=== PATIENT | male | born 1985 | race Caucasian/White ===

== ENCOUNTER 2020-03-10 05:00 | Day surgery (SDC) | payer OTHER ==
[2020-03-05 16:40] VITALS: BMI 25.5
--- OUTSIDE RECORDS SUMMARY | 2020-03-10 05:05 | XMS ---
:1985 Author Organization [facility] Care Team Providers Name Role Phone ED STAFF PHYSICIAN, STAFF Unavailable Unavailable DiGiorno, Christopher Unavailable 0004 DiGiorno, Christopher Unavailable 0004 DiGiorno, Christopher Unavailable 0004 ED STAFF PHYSICIAN Unavailable Unavailable Re-disclosure Warning The records that you are about to access may contain information from federally- assisted alcohol or drug abuse programs. If such information is present, then the following federally mandated warning applies: This information has been disclosed to you from records protected by federal confidentiality rules (42 CFR part 2). The federal rules prohibit you from making any further disclosure of this information unless further disclosure is expressly permitted by the written consent of the person to whom it pertains or as otherwise permitted by 42 CFR part 2. A general authorization for the release of medical or other information is NOT sufficient for this purpose. The Federal rules restrict any use of the information to criminally investigate or prosecute any alcohol or drug abuse patient.The records that you are about to access may contain highly sensitive health information, the redisclosure of which is protected by Article 27-F of the [facility] Public Health law. If you continue you may haveaccess to information: Regarding HIV / AIDS; Provided by facilities licensed or operated by the [facility] Office of Mental Health; or Provided by the [facility] Office for People With Developmental Disabilities. If such information is present, then the following [facility] mandated warning applies: This information has been disclosed to you from confidential records which are protected by state law. State law prohibits you from making any further disclosure of this information without the specific written consent of the person to whom it pertains, or as otherwise permitted by law. Any unauthorized further disclosure in violation of state law may result in a fine or shelter sentence or both. A general authorization for the release of medical or other information is NOT sufficient authorization for further disclosure. Allergies and Adverse Reactions Type Description Substance Reaction Status Data Source(s ) No Known No Known Allergies No Known eCW3 ( [place] [facility]) No Known No Known Allergies No Known eCW3 ( [place] [facility]) Encounters Encounter Providers Location Date Indications Data Source(s ) Attender: Edin 03/04/2020 MED GEN ([facility] 12:00:00 AM Medical, ) EDT Office Emergency Attender: ED STAFF H-ER 12/09/2019 08:37:00 [facility] PHYSICIANAttender: STAFF ED PM EDT - 12/10/2019 [facility] STAFF PHYSICIANAdmitter: ED 12:30:00 AM EDT STAFF PHYSICIAN Patient discharged. 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 [facility] 12/14/2018 12:00:00 AM eCW3 ([facility] A28 EDT - 12/14/2018 12:00:00 Health Care) AM EDT Medications Medication Brand Start Product Dose Route Administrative Pharmacy St atus Indications Reaction Description Data Name Date Form Instructions Instructions Source(s) complet No Known MEDGEN (St 2020 ed Medications [facility] 12:00: Medical, 00 AM ) EDT Fluticasone Flutic .0 active Flutica sone eCW3 Propionate asone 2019 {spra Propionate ( [facility] 50 MCG/ACT Propio 12:00: y_in_ 50 MCG/AC T [place] 00 AM each_ Health 50 EDT nostr Care) MCG/AC il} T Loratadine Lorata .0 active Loratadi ne eCW3 10 MG Oral dine 2019 {tabl 10 MG (Todd Tablet 10 MG 12:00: et} [place] 00 AM Health EDT Care) Naproxen Naprox 11/27/ active Naproxen 5 00 eCW3 500 MG Oral en 500 2020 MG ([place] [facility] Tablet MG 12:00: [place] 00 AM Health EDT Care) Famotidine Famoti .0 active Famotidi ne eCW3 40 MG Oral dine 2019 {tabl 40 MG (Todd Tablet 40 MG 12:00: et_at [place] 00 AM _bedt Health EDT romaine} Care) Cepacol Cepaco .0 active Cepacol Sor e eCW3 Sore Throat l Sore 2019 {loze Throat (Hu dson 10-2.1 MG Throat 12:00: nge_a 10-2.1 MG [place] 10-2.1 00 AM s_nee Health MG EDT ded} Care) Famotidine Famoti .0 active Famotidi ne eCW3 40 MG Oral dine 2019 {tabl 40 MG (Todd Tablet 40 MG 12:00: et_at [place] 00 AM _bedt Health EDT romaine} Care) Cepacol Cepaco .0 suspend Cepacol So re eCW3 Sore Throat l Sore 2019 {loze ed Throat (Hu dson 10-2.1 MG Throat 12:00: nge_a 10-2.1 MG [place] 10-2.1 00 AM s_nee Health MG EDT ded} Care) Amoxicillin Amoxic .0 active Amoxici llin- eCW3 875 MG / illin- 2020 {tabl Pot (Todd Clavulanate Pot 12:00: et} Clavulanate [place] 125 MG Oral Clavul 00 AM 875-125 MG Health Tablet anate EDT Care) Amoxicillin 875-12 -Pot 5 MG Clavulanate 875-125 MG Amoxicillin Amoxic .0 suspend Amoxic illin- eCW3 875 MG / illin- 2019 {tabl ed Pot (Todd Clavulanate Pot 12:00: et} Clavulanate [place] 125 MG Oral Clavul 00 AM 875-125 MG Health Tablet anate EDT Care) Amoxicillin 875-12 -Pot 5 MG Clavulanate 875-125 MG Acetaminoph Tyleno .0 active Tylenol 325 eCW3 en 325 MG l 325 2019 {tabl MG (Todd Oral Tablet MG 12:00: et_as [place] [Tylenol] 00 AM _need Health Tylenol 325 EDT ed} Care) MG pantoprazol Pantop .0 active Pantopr azole eCW3 e 40 MG razole 2019 {tabl Sodium 40 MG ( Todd Delayed Sodium 12:00: et} [place] Release 40 MG 00 AM Health Oral Tablet EDT Care) Pantoprazol e Sodium 40 MG Acetaminoph Tyleno .0 active Tylenol 325 eCW3 en 325 MG l 325 2019 {tabl MG (Todd Oral Tablet MG 12:00: et_as [place] [Tylenol] 00 AM _need Health Tylenol 325 EDT ed} Care) MG pantoprazol Pantop .0 suspend Pantop razole eCW3 e 40 MG razole 2019 {tabl ed Sodium 40 MG ( [place] Delayed Sodium 12:00: et} [place] Release 40 MG 00 AM Health Oral Tablet EDT Care) Pantoprazol e Sodium 40 MG Diphenhydra Diphen .0 suspend Diphen hydrAM eCW3 mine hydrAM 2019 {caps ed INE HCl 50 ([place] Hydrochlori INE 12:00: ule_a MG [place] de 50 MG HCl 50 00 AM t_bed Health Oral MG EDT time_ Care) Capsule as_ne DiphenhydrA eded} MINE HCl 50 MG Azithromyci Azithr 10/10/ suspend Azithr omycin eCW3 n 250 MG omycin 2020 ed 250 MG (Todd Oral Tablet 250 MG 12:00: R[place] r 00 AM Health EDT Care) Acetaminoph Tyleno 2.0 active Tylenol 325 eCW3 en 325 MG l 325 2019 {tabl MG (Todd Oral Tablet MG 12:00: et_as [place] [Tylenol] 00 AM _need Health Tylenol 325 EDT ed} Care) MG Daily Daily 10/10/ suspend Daily eCW3 Multivitami Multiv 2020 ed Multivitami n (Todd n - itamin 12:00: - [place] - 00 AM Health EDT Care) Daily Daily 10/10/ suspend Daily eCW3 Multivitami Multiv 2020 ed Multivitami n (Todd n - itamin 12:00: - [place] - 00 AM Health EDT Care) Diphenhydra Diphen .0 suspend Diphen hydrAM eCW3 mine hydrAM 2019 {caps ed INE HCl 50 ([place] Hydrochlori INE 12:00: ule_a MG [place] de 50 MG HCl 50 00 AM t_bed Health Oral MG EDT time_ Care) Capsule as_ne DiphenhydrA eded} MINE HCl 50 MG Acetaminoph Tyleno 2.0 suspend Tyleno l 325 eCW3 en 325 MG l 325 2019 {tabl ed MG (Todd Oral Tablet MG 12:00: et_as [place] [Tylenol] 00 AM _need Health Tylenol 325 EDT ed} Care) MG Azithromyci Azithr 10/10/ suspend Azithr omycin eCW3 n 250 MG omycin 2020 ed 250 MG (Todd Oral Tablet 250 MG 12:00: R[place] 00 AM Health EDT Care) pantoprazol Pantop 1.0 suspend Pantop razole eCW3 e 40 MG razole 2019 {tabl ed Sodium 40 MG ( Todd Delayed Sodium 12:00: et} [place] Release 40 MG 00 AM Health Oral Tablet EDT Care) Pantoprazol e Sodium 40 MG pantoprazol Pantop 1.0 suspend Pantop razole eCW3 e 40 MG razole 2019 {tabl ed Sodium 40 MG ( Todd Delayed Sodium 12:00: et} [place] Release 40 MG 00 AM Health Oral Tablet EDT Care) Pantoprazol e Sodium 40 MG Diclofenac Diclof .0 active Diclofen ac eCW3 Sodium 50 enac 2020 {tabl Sodium 50 MG ( Todd MG Delayed Sodium 12:00: et} [place] Release 50 MG 00 AM Health Oral Tablet EDT Care) Diclofenac Diclof .0 active Diclofen ac eCW3 Sodium 50 enac 2020 {tabl Sodium 50 MG ( Todd MG Delayed Sodium 12:00: et} [place] Release 50 MG 00 AM Health Oral Tablet EDT Care) Azithromyci Azithr 07/17/ suspend Azithr omycin eCW3 n 250 MG omycin 2020 ed 250 MG (Todd Oral Tablet 250 MG 12:00: [place] 00 AM Health EST Care) Fluticasone Flutic .0 suspend Flutic asone eCW3 Propionate asone 2019 {spra ed Propionate ( Todd 50 MCG/ACT Propio 12:00: y_in_ 50 MCG/AC T [place] ray[place] 00 AM each_ Health 50 EST nostr Care) MCG/AC il} T Azithromyci Azithr 07/17/ suspend Azithr omycin eCW3 n 250 MG omycin 2019 ed 250 MG (Todd Oral Tablet 250 MG 12:00: [place] 00 AM Health EST Care) Omeprazole Omepra 07/17/ suspend Omepraz ole eCW3 40 MG zole 2019 ed 40 MG (Todd Delayed 40 MG 12:00: [place] Release 00 AM Health Oral EST Care) Capsule Omeprazole Omepra 07/17/ suspend Omepraz ole eCW3 40 MG zole 2020 ed 40 MG (Todd Delayed 40 MG 12:00: [place] Release 00 AM Health Oral EST Care) Capsule Fluticasone Flutic .0 suspend Flutic asone eCW3 Propionate asone 2020 {spra ed Propionate ( Todd 50 MCG/ACT Propio 12:00: y_in_ 50 MCG/AC T [place] 00 AM each_ Health 50 EST nostr Care) MCG/AC il} T Azithromyci Azithr 04/17/ suspend Azithr omycin eCW3 n 250 MG omycin 2018 ed 250 MG (Todd Oral Tablet 250 MG 12:00: [place] 00 AM Health EDT Care) Azithromyci Azithr 04/17/ suspend Azithr omycin eCW3 n 250 MG omycin 2019 ed 250 MG (Todd Oral Tablet 250 MG 12:00: [place] 00 AM Health EDT Care) Melatonin Melato 12/14/ active Melatonin 10 eCW3 10 mg tony 10 2019 mg (Todd mg 12:00: [place] 00 AM Health EDT Care) Melatonin Melato 12/14/ active Melatonin 10 eCW3 10 mg tony 10 2019 mg (Todd mg 12:00: [place] 00 AM Health EDT Care) Clarithromy Clarit 1.0 suspend Clarithr omyc eCW3 rafael 500 MG hromyc {tabl ed in 500 mg ( Todd Oral Tablet in 500 et} [place] Clarithromy mg Health rafael 500 mg Care) Clarithromy Clarit 1.0 suspend Clarithr omyc eCW3 rafael 500 MG hromyc {tabl ed in 500 mg ( Todd Oral Tablet in 500 et} [place] Clarithromy mg Health rafael 500 mg Care) Amoxicillin Amoxic 2.0 suspend Amoxicil kenya eCW3 500 MG Oral illin {caps ed 500 mg (Hud son Capsule 500 mg ule} [place] Amoxicillin Health 500 mg Care) valacyclovi Valtre 1.0 active Valtrex 1 GM eCW3 r 1000 MG x 1 GM {tabl (Todd Oral Tablet et} [place] [Valtrex] Health Valtrex 1 Care) GM Omeprazole Omepra 1.0 suspend Omeprazol e eCW3 20 MG zole {caps ed 20 mg (Todd Delayed 20 mg ule} [place] [facility] Health Oral Care) Capsule Omeprazole 20 mg valacyclovi Valtre 1.0 active Valtrex 1 GM eCW3 r 1000 MG x 1 GM {tabl (Todd Oral Tablet et} [place] [Valtrex] Health Valtrex 1 Care) GM Omeprazole Omepra 1.0 suspend Omeprazol e eCW3 20 MG zole {caps ed 20 mg (Todd Delayed 20 mg ule} [place] [facility] Health Oral Care) Capsule Omeprazole 20 mg Amoxicillin Amoxic 2.0 suspend Amoxicil kenya eCW3 500 MG Oral illin {caps ed 500 mg (Hud son Capsule 500 mg ule} [place] Amoxicillin Health 500 mg Care) Insurance Providers Payer name Policy type Policy ID Covered Covered libertarian's Policy P vero / Coverage libertarian ID relationship to [place] Inf ormation type [place] AFFINITY [id number] SP [id number] ESSENTIAL PLAN 3 4 DARION [id number] SP [id number] HEALTH NON CAP AFFINITY [id number] 1 70 HEALTH PLAN AFFINITY O [id number] 01 700 HEALTH PLAN SELF PAY SP INSURANCE Problems, Conditions, and Diagnoses Code Display Name Description Problem Type Effective Data Dates Source(s) K30 Functional dyspepsia FUNCTIONAL DYSPEPSIA Problem 03/04 MEDGEN (St 12:00:00 AM [facility], ) J30.2 Seasonal allergies Seasonal allergies Problem 0 eCW3 12:00:00 AM ([facility]) G89.29 Other chronic pain Other chronic pain Problem 0 eCW3 12:00:00 AM ([facility]) K21.9 Chronic GERD Chronic GERD Problem 09/16/2019 eCW3 12:00:00 AM ([facility]) K21.9 Chronic GERD Chronic GERD Problem 09/16/2019 eCW3 12:00:00 AM ([facility]) J32.2 Sinusitis chronic, Sinusitis chronic, Problem 9 eCW3 ethmoidal ethmoidal 12:00:00 AM ([facility]) F55.3 Anabolic steroid abuse Anabolic steroid abuse Problem 0 01/09/2019 eCW3 12:00:00 AM ([facility]) 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 01/09 eCW3 of penis of penis 12:00:00 AM ([facility]) K29.90 Gastritis and Gastritis and Problem 12/14/2018 eCW3 duodenitis duodenitis 12:00:00 AM ([facility]) F51.04 Psychophysiological Psychophysiological Problem 019 eCW3 insomnia insomnia 12:00:00 AM ([facility]) K29.90 Gastritis and Gastritis and Problem 12/14/2018 eCW3 duodenitis duodenitis 12:00:00 AM ([facility]) R07.89 Other chest pain OTHER CHEST PAIN Diagnosis 12/09/2019 Sa int 08:37:00 PM [facility] R07.9 Chest pain, CHEST PAIN, Diagnosis 12/09/2019 [facility] unspecified UNSPECIFIED 08:37:00 PM [facility] Surgeries/Procedures Procedure Description Date Indications Data Source(s) Documentation of current 03/04/2020 MED GEN ([facility] (procedure) 12:00:00 AM EDT M edical, PC) OFFICE OUTPATIENT NEW 30 03/04/2020 MED GEN ([facility] MINUTES 12:00:00 AM EDT Medical, PC) COLLECTION VENOUS BLOOD 03/04/2020 MEDG EN ([facility] VENIPUNCTURE 12:00:00 AM EDT Medical, ) Results ID Date Data Source [id number] 03/06/2020 05:50:00 PM EDT [facility] Name Value Range Interpretation Description Data Sup porting Code Source(s) Document(s ) SARS [facility] coronavirus 2 RNA This lab was ordered by [facility] and reported by [facility]. ID Date Data Source [id number] 02/11/2020 06:34:00 PM EDT [facility] Name Value Range Interpretation Code Description Data Elen rce(s) Supporting Document(s ) SARS-COV-2 [facility] RNA RESP Diagnostics QL ILDEFONSO+PROBE This lab was ordered by [facility] and reported by [facility]. ID Date Data Source [id number] 12/09/2019 11:30:00 PM EDT [facility] 0 Name Value Range Interpretation Description Data Sup porting Code Source(s) Document(s ) Color of Urine YELLOW <content [facility] styleCode="Michael Amy d">Color, Medical Urine Center </content>YELL OW <content styleCode="Nikki lics"> (YELLOW )</content> Ketones NEGATIVE <content [facility] [Mass/volume] styleCode="Mihcael Amy in Urine by d">Urine Medical Test strip Ketone Center </content>NEGA TIVE MG/DL<content styleCode="Nikki lics"> (NEGATIVE MG/DL)</conten t> UNK CLEAR <content [facility] styleCode="Michael Smiths d">Urine Medical Clarity Center </content>ANDREAS R <content styleCode="Nikki lics"> (CLEAR )</content> Glucose NEGATIVE <content [facility] [Mass/volume] styleCode="Michael Smiths in Urine by d">Urine Medical Test strip Glucose Center </content>NEGA TIVE MG/DL<content styleCode="Nikki lics"> (NEGATIVE MG/DL)</conten t> UNK NEGATIVE <content [facility] styleCode="Michael Amy d">Urine Medical Bilirubin Center </content>NEGA TIVE <content styleCode="Nikki lics"> (NEGATIVE )</content> pH of Urine by 4.5-8.0 <content [facility] Test strip styleCode="Michael Amy d">Urine pH Medical </content>7.0 Center <content styleCode="Nikki lics"> (4.5-8.0 )</content> Hemoglobin NEGATIVE <content [facility] [Presence] in styleCode="Michael Smiths Urine by Test d">Urine Blood Medical strip </content>NEGA Center TIVE <content styleCode="Nikki lics"> (NEGATIVE )</content> Protein NEGATIVE <content [facility] [Mass/volume] styleCode="Michael Smiths in Urine by d">Urine Medical Test strip Protein Center </content>NEGA TIVE MG/DL<content styleCode="Nikki lics"> (NEGATIVE MG/DL)</conten t> Specific 1.015-1.02 <content [facility] gravity of 5 styleCode="Michael Smiths Urine by Test d">Urine Medical strip Specific Center [place] </content>1.02 5 <content styleCode="Nikki lics"> (1.015-1.025 )</content> Urobilinogen 0.2-1.0 <content [facility] [Units/volume] styleCode="Michael Smiths in Urine by d">Urine Medical Test strip Urobilinogen Center </content>0.2 MG/DL<content styleCode="Nikki lics"> (0.2-1.0 MG/DL)</conten t> Leukocyte NEGATIVE <content [facility] esterase styleCode="Michael Amy [Presence] in d">Urine Medical Urine by Test Leukocyte Center strip </content>NEGA TIVE <content styleCode="Nikki lics"> (NEGATIVE )</content> Nitrite NEGATIVE <content [facility] [Presence] in styleCode="Michael Amy Urine by Test d">Urine Medical strip Nitrite Center </content>NEGA TIVE <content styleCode="Nikki lics"> (NEGATIVE )</content> ID Date Data Source [id number] 12/09/2019 11:30:00 PM EDT [facility] -0400 Name Value Range Interpretation Description Data Sup porting Code Source(s) Document(s ) Cannabinoids <content [facility] [Presence] in styleCode="Michael Amy Urine by Screen d">Cannabinoid Medical method >50 ng/mL s Center </content>NEGA TIVE NG/ML (Reference Range: not available)<br/ > ID Date Data Source HematologyRou.[id number] 12/09/2019 10:10:00 PM EDT [facility] 0400 Name Value Range Interpretation Description Data Sup porting Code Source(s) Document(s ) Hemoglobin 13.5-17. <content [facility] [Mass/volume] in 5 styleCode="Bold Amy Blood ">Hemoglobin Medical </content>13.8 Center G/DL<content styleCode="Ital ics"> (13.5-17.5 G/DL)</content> Erythrocyte mean 80.0-100 <content [facility] corpuscular .0 styleCode="Bold Amy volume [Entitic ">Mean Medical volume] by Corpuscular Center Automated count Volume </content>88.1 FL<content styleCode="Ital ics"> (80.0-100.0 FL)</content> Leukocytes 4.4-11.0 <content [facility] [#/volume] in styleCode="Bold Amy Blood by ">White Blood Medical Automated count Cell Count Center </content>8.48 KCUMM<content styleCode="Ital ics"> (4.4-11.0 KCUMM)</content > Erythrocytes 4.4-5.9 <content [facility] [#/volume] in styleCode="Bold Amy Blood by ">Red Blood Medical Automated count Cell Count Center </content>4.71 MCUMM<content styleCode="Ital ics"> (4.4-5.9 MCUMM)</content > Hematocrit 41.0-53. <content [facility] [Volume 0 styleCode="Bold Amy Fraction] of ">Hematocrit Medical Blood by </content>41.5 Center Automated count %<content styleCode="Ital ics"> (41.0-53.0 %)</content> Platelets 130-400 <content Saint [#/volume] in styleCode="Bold Amy Blood by ">Platelet Medical Automated count Count Center </content>164 KCUMM<content styleCode="Ital ics"> (130-400 KCUMM)</content > Erythrocyte 11.5-14. <content [facility] distribution 5 styleCode="Bold Amy width [Ratio] by ">Red Cell Medical Automated count Distribution Center Width </content>13.6 %<content styleCode="Ital ics"> (11.5-14.5 %)</content> Erythrocyte mean 26.0-34. <content [facility] corpuscular 0 styleCode="Bold Amy hemoglobin ">Mean Medical [Entitic mass] Corposcular Center by Automated Hemoglobin count </content>29.3 PG<content styleCode="Ital ics"> (26.0-34.0 PG)</content> Erythrocyte mean 32.0-37. <content [facility] corpuscular 0 styleCode="Bold Amy hemoglobin ">Mean Corpus. Medical concentration Hgb Center [Mass/volume] by Concentration Automated count (MCHC) </content>33.3 G/DL<content styleCode="Ital ics"> (32.0-37.0 G/DL)</content> Platelet mean 8.0-11.0 Above high <content [facility] volume [Entitic normal styleCode="Bold Amy volume] in Blood ">Mean Platelet Medical by Automated Volume Center count </content>12.3 FL H<content styleCode="Ital ics"> (8.0-11.0 FL)</content> UNK 0.0 <content [facility] styleCode="Bold Amy ">Nucleated Red Medical Blood Cell Center Count </content>0.00 KCUMM<content styleCode="Ital ics"> (0.0 KCUMM)</content > UNK 0 <content Saint styleCode="Bold Amy ">Nucleated Red Medical Blood Cell Center </content>0.0 /100<content styleCode="Ital ics"> (0 /100)</content> ID Date Data Source GFR(Creatinine).[id number] 12/09/2019 10:10:00 PM EDT [facility] 0-0400 Name Value Range Interpretation Code Description Data Elen rce(s) Supporting Document(s ) UNK > 60 <content [facility] Amy styleCode="Bold"> Medical Cent er EGFR </content>118 GFR<content styleCode="Italic s"> (> 60 GFR)</content> ID Date Data Source CardiacMarkers.[id number] 12/09/2019 10:10:00 PM EDT [facility] -0400 Name Value Range Interpretation Description Data Sup porting Code Source(s) Document(s ) Troponin < 0.034 <content [facility] I.cardiac styleCode="Bold Amy [Mass/volume ">Troponin I Medical ] in Serum </content>< Center or Plasma 0.012 NG/ML<content styleCode="Ital ics"> (< 0.034 NG/ML)</content > ID Date Data Source [id number] 12/09/2019 10:10:00 PM EDT [facility] Name Value Range Interpretation Description Data Sup porting Code Source(s) Document(s ) Sodium 137-145 <content [facility] [Moles/volume] styleCode="Michael Amy in Serum or d">Sodium Medical Plasma </content>137 Center MEQ/L<content styleCode="Nikki lics"> (137-145 MEQ/L)</conten t> Chloride 98-107 <content [facility] [Moles/volume] styleCode="Michael Amy in Serum or d">Chloride Medical Plasma </content>102 Center MEQ/L<content styleCode="Nikki lics"> (98-107 MEQ/L)</conten t> UNK 9-20 <content [facility] styleCode="Michael Smiths d">BUN Medical </content>18 Center MG/DL<content styleCode="Nikki lics"> (9-20 MG/DL)</conten t> Potassium 3.5-5.3 <content [facility] [Moles/volume] styleCode="Michael Amy in Serum or d">Potassium Medical Plasma </content>4.0 Center MEQ/L<content styleCode="Nikki lics"> (3.5-5.3 MEQ/L)</conten t> Carbon 22-30 <content [facility] dioxide, total styleCode="Michael Amy [Moles/volume] d">Carbon Medical in Serum or Dioxide Center Plasma </content>29 MEQ/L<content styleCode="Nikki lics"> (22-30 MEQ/L)</conten t> Creatinine 0.5-1.3 <content [facility] [Mass/volume] styleCode="Michael Amy in Serum or d">Creatinine Medical Plasma </content>0.8 Center MG/DL<content styleCode="Nikki lics"> (0.5-1.3 MG/DL)</conten t> Glucose 74-106 <content [facility] [Mass/volume] styleCode="Michael Amy in Serum or d">Glucose Medical Plasma </content>95 Center MG/DL<content styleCode="Nikki lics"> (74-106 MG/DL)</conten t> UNK > 60 <content [facility] styleCode="Michael Amy d">EGFR Medical </content>118 Center GFR<content styleCode="Nikki lics"> (> 60 GFR)</content> Calcium 8.4-10.2 <content [facility] [Mass/volume] styleCode="Michael Amy in Serum or d">Calcium Medical Plasma </content>9.5 Center MG/DL<content styleCode="Nikki lics"> (8.4-10.2 MG/DL)</conten t> ID Date Data Source [id number] 10/06/2019 12:00:00 AM EDT [facility] Name Value Range Interpretation Code Description Data Elen rce(s) Supporting Document(s ) 2019-nCoV [facility] RNA XXX ILDEFONSO+probe- Imp This lab was ordered by [facility] a nd reported by [facility]. 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 Smoking 03/04/2020 Unknown if ever completed Unknown if ever MEDG EN (St 12:00:00 AM EDT smoked smoked [facility], ) Smoking 12/10/2019 Denies Ever Smoked completed Denies Ever Smoke d [facility] 12:25:00 AM EDT Medical C enter Smoking 12/09/2019 Denies Ever Smoked completed Denies Ever Smoke d [facility] 09:10:00 PM EDT Medical C enter Smoking 12/04/2019 Never Smoker completed Never Smoker eCW3 ([facility] 12:[facility]:00 AM EDT [facility]) Smoking 10/31/2019 Never Smoker completed Never Smoker eCW3 ([facility] 12:00:00 AM EDT [facility]) Never Smoker completed Never Smoker eCW3 ([facility]) Never Smoker completed Never Smoker eCW3 ([facility]) Vital Signs ID Date Data Source UNK Name Value Range Interpretation Code Description Data Source(s) Heart rate 72 /min 72 /min MEDGEN ([facility] , ) Respiratory rate 16 /min 16 /min MEDGEN ( [facility] , ) Body mass index 25.6 kg/m2 25.6 kg/m2 MEDGEN (S t (BMI) [Ratio] [facility], ) Diastolic blood 76 mm[Hg] 76 mm[Hg] MEDGEN (S t pressure [facility]) Systolic blood 124 mm[Hg] 124 mm[Hg] MEDGEN (St pressure [facility]) Body weight 149 lb 149 lb MEDGEN ([facility]) Body height 64 in 64 in [facility] ([facility]) Body temperature 36.182387 [id number] [facility] Respiratory rate 14 /min 14 /min [facility] Oxygen saturation 100 % 100 % [facility] Arterial blood [facility] by Pulse oximetry Heart rate 71 /min 71 /min [facility] Diastolic blood 84 mm[Hg] 84 mm[Hg] [facility] Systolic blood 136 mm[Hg] 136 mm[Hg] [facility] Body temperature 36.009485 [id number] [facility] Respiratory rate 16 /min 16 /min [facility] Oxygen saturation 97 % 97 % [facility] by Pulse oximetry Heart rate 64 /min 64 /min [facility] Diastolic blood 86 mm[Hg] 86 mm[Hg] [facility] Systolic blood 142 mm[Hg] 142 mm[Hg] [facility] Diastolic blood 72 mm[Hg] 72 mm[Hg] eCW3 ([facility]) Systolic blood 128 mm[Hg] 128 mm[Hg] eCW3 ([facility]) Body temperature 97.6 [degF] 97.6 [degF] eCW3 ( [facility]) Body mass index 25.23 kg/m2 25.23 kg/m2 eCW3 ([facility] (BMI) [Ratio] [facility]) Body weight 146 [lb_av] 146 [lb_av] eCW3 ([facility]) Body height 63.78 [in_i] 63.78 [in_i] eCW3 ([facility]) Diastolic blood 77 mm[Hg] 77 mm[Hg] eCW3 ([facility]) Systolic blood 117 mm[Hg] 117 mm[Hg] eCW3 ([facility]) Body temperature 98.8 [degF] 98.8 [degF] eCW3 ( [facility]) Body mass index 25.75 kg/m2 25.75 kg/m2 eCW3 ([facility] (BMI) [Ratio] [facility]) Body weight 149 [lb_av] 149 [lb_av] eCW3 ([facility]) Body height 63.78 [in_i] 63.78 [in_i] eCW3 ([facility]) Patient Treatment Plan of Care Planned Activity Planned Date Details Description Data Source (s) Fluticasone Propionate 11/28/2019 12:00:00 eCW3 ([facility] 50 MCG/ACT [facility]) Loratadine 10 MG Oral 11/28/2019 12:00:00 eCW3 ([facility] Tablet [facility]) Naproxen 500 MG Oral 11/28/2019 12:00:00 eCW3 ([facility] Tablet [facility]) Cepacol Sore Throat 10/31/2019 12:00:00 e CW3 ([facility] 10-2.1 MG [facility]) Famotidine 40 MG Oral 10/31/2019 12:00:00 eCW3 ([facility] Tablet [facility]) Amoxicillin 875 MG / 10/31/2019 12:00:00 eCW3 ([facility] Clavulanate 125 MG Oral [facility]) Tablet
[2020-03-10 13:08] VITALS: BP 119/71; PULSE 67; TEMP 97.7
--- NOTE | 2020-03-11 18:17 | PATH ---
Surgical Pathology Report Patient Name: [facility]. Rec. #: [id number] /Age/Gender: 1985 (Age: 35) / M Account: [id number] Location: U-ENDOSCOPY Taken: 03/10/2020 Received: 03/10/2020 Reported: 03/11/2020 Physicians: Edin Slaughter D.O. Specimen(s) Received A: ANTRAL EROSIONS B: ANGULARIS AND BODY Clinical History Dyspepsia, epigastric pain Postoperative diagnosis: Gastritis Final Diagnosis A. STOMACH, ANTRAL EROSIONS, BIOPSY: GASTRIC ANTRAL MUCOSA WITH MODERATE TO SEVERE CHRONIC ACTIVE GASTRITIS. IMMUNOHISTOCHEMICAL STAIN FOR H. PYLORI IS NEGATIVE. B. STOMACH, ANGULARIS AND BODY, BIOPSY: GASTRIC BODY MUCOSA WITH SEVERE CHRONIC GASTRITIS. IMMUNOHISTOCHEMICAL STAIN FOR H. PYLORI IS NEGATIVE. Positive and negative controls (internal if applicable) show appropriate results. Electronically Signed Ruth Healy M.D. Gross Description A. Received in formalin, labeled "antral erosions" are 4 sales, irregular portions of soft tissue measuring 0.2-0.3 cm. in greatest dimension. The specimens are submitted in toto in one cassette. B. Received in formalin, labeled "angularis and body" are 7 sales, irregular portions of soft tissue measuring 0.2-0.4 cm. in greatest dimension. The specimens are submitted in toto in one cassette. MLSZ/03/10/2020 sanml/03/10/2020
== END 2020-03-10 13:05 | disposition home or self-care (01) ==
LOC: JASU-ENDO 05:00
PROVIDERS: ATTEND Internal Medicine Gastroenterology
PROC: 0DB68ZX Excision of Stomach, Via Natural or Artificial Opening Endoscopic, Diagnostic (ICD-10-PCS; principal; 2020-03-10 11:30)
DX: K29.50 Unspecified chronic gastritis without bleeding (principal); R13.10 Dysphagia, unspecified; R10.13 Epigastric pain
CPT/HCPCS: 88305-TC; 88342-TC

== ENCOUNTER 2020-06-11 15:37 | Emergency (ER) | payer OTHER ==
[2020-06-11 16:40] VITALS: BP 115/76; PULSE 99; TEMP 98.2; BMI 25.0
[2020-06-11 17:16] LABS: BASO % 0.8 % (0-2.0); HEMATOCRIT 45.3 % (35.4-49); HEMOGLOBIN 15.3 GM/dL (11.7-16.9); LYMPH % 28.1 % (8-40); MCHC 33.8 g/dl (32.0-35.9); MEAN CELL VOLUME 85.8 fl (80-96); NEUT % 61.1 % (42.8-82.8); PLATELET COUNT 173 K/MM3 (134-434); RBC 5.29 M/mm3 (4.00-5.60); RDW 13.7 % (11.9-15.9); WHITE BLOOD COUNT 9.6 K/mm3 (4.0-10.0)
[2020-06-11 17:24] LABS: INR 0.97 (0.83-1.09); PROTHROMBIN TIME (PATIENT) 11.9 SEC (9.7-13.0)
[2020-06-11 17:37] LABS: POTASSIUM 3.7 mmol/L (3.5-5.1)
[2020-06-11 17:39] LABS: CALCIUM 8.7 mg/dL (8.5-10.1)
[2020-06-11 17:40] LABS: BLOOD UREA NITROGEN 16.7 mg/dL (7-18)
[2020-06-11 17:43] LABS: CREATININE 1.1 mg/dL (0.55-1.3)
[2020-06-11 17:44] LABS: BILIRUBIN,TOTAL 0.3 mg/dL (0.2-1)
[2020-06-11 17:45] LABS: TOT PROT 7.6 g/dl (6.4-8.2)
== END 2020-06-11 18:56 | disposition home or self-care (01) ==
LOC: JER 15:37
DX: R07.1 Chest pain on breathing (principal); R07.81 Pleurodynia
CPT/HCPCS: 36415; 71046-TC-FY; 80053; 82550; 82553; 84484; 85025; 85610; 93005; 93010; 99285-25

== ENCOUNTER 2021-11-17 10:53 | Emergency (ER) | payer OTHER ==
[2021-11-17 11:09] VITALS: BP 156/79; PULSE 77; TEMP 97.7; BMI 24.4
== END 2021-11-17 13:07 | disposition home or self-care (01) ==
LOC: JERFT 10:53
DX: L23.7 Allergic contact dermatitis due to plants, except food (principal)
CPT/HCPCS: 99283-25

== ENCOUNTER 2022-03-21 14:10 | Emergency (ER) | payer OTHER ==
[2022-03-21 14:14] VITALS: BP 131/79; PULSE 78; RESP 18; TEMP 98; BMI 25.0
[2022-03-21] MEDS ORDERED: KETOROLAC TROMETHAMINE 30 MG/1 ML VIAL IVPUSH ONE (15:51)
[2022-03-21] MEDS ORDERED: CYCLOBENZAPRINE HCL 10 MG TABLET (FP) PO ONE (15:51)
[2022-03-21] MEDS ORDERED: ACETAMINOPHEN 1000 MG/100 ML BAG IVPB ONE (15:51)
[2022-03-21] MEDS ORDERED: KETOROLAC TROMETHAMINE 30 MG/1 ML VIAL ONE (15:57)
[2022-03-21] MEDS ORDERED: ACETAMINOPHEN 325 MG TABLET (FP) ONE (15:57)
[2022-03-21] MEDS ORDERED: CYCLOBENZAPRINE HCL 10 MG TABLET (FP) ONE (15:57)
[2022-03-21] MEDS ORDERED: LIDOCAINE 5% TOPICAL PATCH ONE (16:01)
[2022-03-21] MEDS ORDERED: ACETAMINOPHEN 325 MG TABLET (FP) PO ONE (16:01)
[2022-03-21] MEDS ORDERED: LIDOCAINE 5% TOPICAL PATCH TP ONE (16:01)
[2022-03-21] MEDS ORDERED: KETOROLAC TROMETHAMINE 30 MG/1 ML VIAL IM ONE (16:01)
[2022-03-21 16:08] LABS: BASO % 0.6 % (0-2.0); EOS % 2.2 % (0-4.5); HEMATOCRIT 46.1 % (35.4-49); HEMOGLOBIN 15.5 GM/dL (11.7-16.9); LYMPH % 30.4 % (8-40); MCH 29.1 pg (25.7-33.7); MCHC 33.5 g/dl (32.0-35.9); MEAN CELL VOLUME 86.6 fl (80-96); MEAN PLT VOLUME 10.1 fl (7.5-11.1); NEUT % 58.8 % (42.8-82.8); PLATELET COUNT 166 10^3/uL (134-434); RBC 5.32 M/mm3 (4.00-5.60); RDW 13.9 % (11.9-15.9); WHITE BLOOD COUNT 8.5 K/mm3 (4.0-10.0)
[2022-03-21 16:28] LABS: CHLORIDE 105 mmol/L (98-107); SODIUM 140 mmol/L (136-145)
[2022-03-21 16:30] LABS: ALBUMIN 4.1 g/dl (3.4-5.0); ANION GAP 5 MMOL/L (8-16); BLOOD UREA NITROGEN 17.7 mg/dL (7-18); CALCIUM 9.2 mg/dL (8.5-10.1); CO2 30 mmol/L (21-32); GLUCOSE,RANDOM 95 mg/dL (74-106)
[2022-03-21 16:33] LABS: CREATININE 1.1 mg/dL (0.55-1.3); SGOT/AST 28 U/L (15-37); SGPT/ALT 48 U/L (13-61)
[2022-03-21 16:35] LABS: BILIRUBIN,TOTAL 0.4 mg/dL (0.2-1)
[2022-03-21 16:36] LABS: ALK PHOS 61 U/L (45-117)
[2022-03-21] MEDS ORDERED: LIDOCAINE PATCH REMOVAL MC SCH (22:00)
== END 2022-03-21 18:04 | disposition home or self-care (01) ==
LOC: JER 14:10
PROC: 3E0233Z Introduction of Anti-inflammatory into Muscle, Percutaneous Approach (ICD-10-PCS; principal; 2022-03-21)
DX: M79.602 Pain in left arm (principal)
CPT/HCPCS: 36415; 71046-TC-FY; 80053; 84484; 85025; 93005; 93010; 99285-25

== ENCOUNTER 2022-04-14 19:59 | Emergency (ER) | payer OTHER ==
[2022-04-14 20:08] VITALS: BP 116/70; PULSE 76; RESP 18; TEMP 98.1; BMI 25.7
[2022-04-14 21:04] LABS: URINE APPEARANCE CLEAR; URINE BILIRUBIN NEGATIVE (NEGATIVE); URINE COLOR YELLOW; URINE GLUCOSE (UA) NEGATIVE (NEGATIVE); URINE KETONE NEGATIVE (NEGATIVE); URINE LEUK ESTERASE NEGATIVE (NEGATIVE); URINE NITRITE NEGATIVE (NEGATIVE); URINE PROTEIN NEGATIVE (NEGATIVE); URINE UROBILINOGEN 0.2 mg/dL (0.2-1.0)
== END 2022-04-14 21:55 | disposition home or self-care (01) ==
LOC: JERFT 19:59
PROC: 3E023GC Introduction of Other Therapeutic Substance into Muscle, Percutaneous Approach (ICD-10-PCS; principal; 2022-04-14)
DX: R30.0 Dysuria (principal)
CPT/HCPCS: 36415; 81003; 87086; 87491; 87591; 99284-25

== ENCOUNTER 2022-04-22 17:16 | Emergency (ER) | payer OTHER ==
[2022-04-22 17:21] VITALS: BP 128/74; PULSE 68; RESP 18; TEMP 98; BMI 26.2
[2022-04-22] MEDS ORDERED: ACETAMINOPHEN 1000 MG/100 ML BAG IVPB ONE (19:01)
[2022-04-22] MEDS ORDERED: SODIUM CHLORIDE 1,000 ML IV STA (19:01)
[2022-04-22] MEDS ORDERED: ACETAMINOPHEN INJECTION 100 ML IVPB ONE (19:27)
[2022-04-22 19:50] LABS: HEMOGLOBIN 15.3 GM/dL (11.7-16.9); MEAN PLT VOLUME 10.7 fl (7.5-11.1)
[2022-04-22 19:58] LABS: BASO % 0.5 % (0-2.0); LYMPH % 37.9 % (8-40); MCH 29.7 pg (25.7-33.7); MEAN CELL VOLUME 87.2 fl (80-96); MONO % 7.3 % (3.8-10.2); NEUT % 52.3 % (42.8-82.8); PLATELET COUNT 157 10^3/uL (134-434); RBC 5.16 M/mm3 (4.00-5.60); RDW 14.2 % (11.9-15.9); WHITE BLOOD COUNT 7.2 K/mm3 (4.0-10.0)
[2022-04-22 19:59] LABS: INR 1.07 (0.83-1.09); PROTHROMBIN TIME (PATIENT) 12.3 SEC (9.7-13.0)
[2022-04-22 20:01] LABS: ALBUMIN 4.2 g/dl (3.4-5.0); BLOOD UREA NITROGEN 21.2 mg/dL (7-18); CALCIUM 9.3 mg/dL (8.5-10.1)
[2022-04-22 20:04] LABS: CREATININE 1.2 mg/dL (0.55-1.3)
[2022-04-22 20:06] LABS: BILIRUBIN,TOTAL 0.5 mg/dL (0.2-1); TOT PROT 7.7 g/dl (6.4-8.2)
[2022-04-22 20:33] LABS: URINE APPEARANCE CLEAR; URINE BILIRUBIN NEGATIVE (NEGATIVE); URINE COLOR YELLOW; URINE GLUCOSE (UA) NEGATIVE (NEGATIVE); URINE KETONE NEGATIVE (NEGATIVE); URINE LEUK ESTERASE NEGATIVE (NEGATIVE); URINE NITRITE NEGATIVE (NEGATIVE); URINE PROTEIN NEGATIVE (NEGATIVE); URINE UROBILINOGEN 0.2 mg/dL (0.2-1.0)
== END 2022-04-23 00:55 | disposition home or self-care (01) ==
LOC: JER 17:16
PROC: 3E033NZ Introduction of Analgesics, Hypnotics, Sedatives into Peripheral Vein, Percutaneous Approach (ICD-10-PCS; principal; 2022-04-22)
PROC: 3E0337Z Introduction of Electrolytic and Water Balance Substance into Peripheral Vein, Percutaneous Approach (ICD-10-PCS; 2022-04-22)
DX: R10.32 Left lower quadrant pain (principal)
CPT/HCPCS: 36415; 74176-TC; 76870-TC; 80053; 81003; 85025; 85610; 87086; 87491; 87591; 99285-25

== ENCOUNTER 2023-06-27 17:32 | Emergency (ER) | payer OTHER ==
[2023-06-27 17:43] VITALS: BP 133/77; PULSE 80; RESP 20; TEMP 98.4; BMI 25.7
[2023-06-27 20:08] LABS: PH,URINE 6.5 (5.0-8.0); URINE APPEARANCE CLEAR; URINE BILIRUBIN NEGATIVE (NEGATIVE); URINE COLOR YELLOW; URINE GLUCOSE (UA) NEGATIVE (NEGATIVE); URINE KETONE NEGATIVE (NEGATIVE); URINE LEUK ESTERASE NEGATIVE (NEGATIVE); URINE NITRITE NEGATIVE (NEGATIVE); URINE PROTEIN NEGATIVE (NEGATIVE)
[2023-06-27] MEDS ORDERED: DOXYCYCLINE HYCLATE 100 MG CAPSULE PO ONE ×2 (22:17→22:23)
[2023-06-27] MEDS ORDERED: KETOROLAC TROMETHAMINE 30 MG/1 ML VIAL IM ONE (22:17)
[2023-06-27] MEDS ORDERED: KETOROLAC TROMETHAMINE 30 MG/1 ML VIAL ONE (22:22)
[2023-06-27] MEDS ORDERED: cefTRIAXone SODIUM 1 GM VIAL ONE ×2 (22:23→22:24)
== END 2023-06-27 22:54 | disposition home or self-care (01) ==
LOC: JER 17:32
PROC: 3E0233Z Introduction of Anti-inflammatory into Muscle, Percutaneous Approach (ICD-10-PCS; principal; 2023-06-27)
PROC: 3E023GC Introduction of Other Therapeutic Substance into Muscle, Percutaneous Approach (ICD-10-PCS; 2023-06-27)
DX: N50.82 Scrotal pain (principal); R30.0 Dysuria; N50.811 Right testicular pain; N34.2 Other urethritis; R10.30 Lower abdominal pain, unspecified
CPT/HCPCS: 36415; 76870-TC; 81003; 87086; 87491; 87591; 99284-25

== ENCOUNTER 2024-04-20 06:26 | Emergency (ER) | payer OTHER ==
[2024-04-20 06:34] VITALS: BMI 26.4
[2024-04-20 08:09] LABS: URINE APPEARANCE CLEAR; URINE BILIRUBIN NEGATIVE (NEGATIVE); URINE COLOR YELLOW; URINE GLUCOSE (UA) NEGATIVE (NEGATIVE); URINE KETONE NEGATIVE (NEGATIVE); URINE LEUK ESTERASE NEGATIVE (NEGATIVE); URINE NITRITE NEGATIVE (NEGATIVE); URINE PROTEIN NEGATIVE (NEGATIVE); URINE UROBILINOGEN 0.2 mg/dL (0.2-1.0)
[2024-04-20] MEDS ORDERED: ACETAMINOPHEN 325 MG TABLET (FP) ONE (08:10)
[2024-04-20] MEDS: ACETAMINOPHEN 325 MG TABLET (FP) PO ONE (08:13)
[2024-04-20 09:47] VITALS: BP 132/90; PULSE 55; RESP 17; TEMP 98.1
== END 2024-04-20 09:51 | disposition home or self-care (01) ==
LOC: JER 06:26
DX: N41.9 Inflammatory disease of prostate, unspecified (principal); R30.0 Dysuria
CPT/HCPCS: 36415; 81003; 82962; 87086; 87491; 87591; 99283-25